=== PATIENT | male | born 1990 | race Caucasian/White ===

== ENCOUNTER 2021-12-26 12:31 | Emergency (ER) | payer MEDICARE, MEDICAID, SELFPAY ==
--- NOTE | ~2021-12-26 | US_ITS ---
EXAMINATION: US venous doppler UE RT DATE: 12/26/2021 13:39 INDICATION: Right upper limb swelling several days post PICC line removal. TECHNIQUE: Grayscale images without and with compression and Doppler images of the right upper extrem ity veins were obtained. COMPARISON: None. FINDINGS: There is nonocclusive noncompressible thrombus in the peripheral right subclavian vein extending into the right axillary vein with additional occlusive appearing thrombus further distally in the right b asilic vein. The right internal jugular vein, brachial vein, cephalic vein, radial vein, and ulnar ve in are patent. IMPRESSION: 1. Thrombosis in the right basilic and axillary veins extending into the peripheral right subclavian vein. Reviewed, dictated and finalized at location A. IMPRESSION: 1. Thrombosis in the right basilic and axillary veins extending into the periph eral right subclavian vein.
[2021-12-26 12:40] VITALS: BP 127/71; PULSE 100; RESP 14; TEMP 36.6; O2SAT 95
--- NOTE | 2021-12-26 13:03 | ED.EXTPRO ---
HPI - Extremity Problem General Chief complaint: Skin/Abscess/Foreign Body Stated complaint: ARM IS SWOLLEN Time Seen by Provider: 12/26/21 13:00 Source: patient and RN notes reviewed Mode of arrival: ambulatory Limitations: no limitations History of Present Illness HPI Narrative: Patient had been getting antibiotics for his history of cystic fibrosisthrough PICC line. He went to [facility] yesterday and had the PICC line removed after completing his therapy. he said the swelling began last evening and continued into this morning. He denies any significant pain. MD Complaint: extremity swelling Onset (ago): day(s) (1) Pain Consistency: constant Location: right and upper extremity Quality: aching, dull and constant Radiation: none Relieving factors: nothing Exacerbating factors: nothing Associated symptoms: denies other symptoms Context: recent surgery/procedure Related Data Allergies Allergy/AdvReac Type Severity Reaction Status Date / Time No Known Allergies Allergy Verified 12/26/21 13:00 Review of Systems Review of Systems: All systems reviewed & are unremarkable except as noted in HPI and below PMFSH Past Medical History Medical History (Updated 12/26/21 @ 13:59 by Roly Jacques MD) Cystic fibrosis Surgical History Surgical History (Updated 12/26/21 @ 13:58 by Roly Jacques MD) No pertinent past surgical history Social History Social History (Updated 12/26/21 @ 13:58 by Roly Jacques MD) Smoking status: Never smoker Exam Const: General: healthy appearing, no acute distress and alert Nutritional Appearance: well nourished and thin Orientation/consciousness: patient oriented x3 HENMT: Head: normal to inspection Ears: external ears normal Eyes: Conjunctivae: conjunctivae normal Pupils: Equal, round and reactive pupils present EOM: EOMs intact bilaterally Neck: Neck: normal visual inspection Chest: Chest palpation & inspection: normal inspection of the chest Resp: Effort & Inspection: normal respiratory effort Auscultation: clear to auscultation bilaterally Cardio: Rate: regular rate Rhythm: regular rhythm GI: GI Palp: Yes Soft to palpation and No Tenderness to palpation present (GI) Auscultation: normal bowel sounds Back/Spine/Pelvis: Cervical Spine: cervical ROM normal Thoracic/Lumbar Spine: thoraco-lumbar ROM normal Skin: General skin exam: normal color Rashes: no rashes Neuro: General: patient oriented x3, moves all extremities, no meningeal signs, no focal motor deficits and CN's II-XI intact bilaterally Speech: normal speech Gait exam (Neuro): Normal gait present Extrem: Right upper extremity: full ROM, cyanosis, edema and shoulder/upper arm tenderness ( Over the axillary vein medially) and warmth Psych: Appearance: grossly normal and well kempt Mental Status: mental status grossly normal Affect: normal affect Attitude: cooperative Thought content: Yes Normal thought content present Course Vital Signs Vital signs: Vital Signs Temperature 36.6 C 12/26/21 12:40 Pulse Rate 100 12/26/21 12:40 Respiratory Rate 14 12/26/21 12:40 Blood Pressure 127/71 12/26/21 12:40 Pulse Oximetry 95 12/26/21 12:40 Temperature 36.6 C 12/26/21 12:40 Pulse Rate 72 12/26/21 14:05 Respiratory Rate 14 12/26/21 14:05 Blood Pressure 127/71 12/26/21 12:40 Pulse Oximetry 99 12/26/21 14:05 MDM - Extremity (Nontraumatic) Lab Data Result diagrams: 12/26/21 13:40 12/26/21 13:40 Labs: Lab Results 12/26/21 12/26/21 12/26/21 Range/Units 13:40 13:40 13:40 WBC 9.9 (4.8-10.8) K/mm3 RBC 4.31 L (4.70-6.10) M/mm3 Hgb 13.1 L (14.0-18.0) g/dL Hct 39.7 L (40.0-54.0) % MCV 92.1 (78.0-102.0) fL MCH 30.4 (27.0-31.0) pg MCHC 33.0 (32.0-36.0) g/dL RDW 12.8 (11.6-14.4) % Plt Count 199 (150-420) K/mm3 MPV 10.4 (8.7-11.0) fl Immature Gran % (Auto) 0.6 H (0.0-0.0) % Julia
--- NOTE | 2021-12-26 13:23 | PC.NURSE ---
PT TO ULTRASOUND AT THIS TIME.
[2021-12-26 13:45] LABS: Basophils Absolute Auto 0.13 K/mm3 (0.00-0.10); Basophils Percent Auto 1.3 % (0.0-1.0); Eosinophils Percent Auto 9.1 % (1.0-6.0); Hematocrit 39.7 % (40.0-54.0); Hemoglobin 13.1 g/dL (14.0-18.0); Immature Granulocyte Absolute 0.06 K/mm3 (0.00-0.00); Immature Granulocyte Percent A 0.6 % (0.0-0.0); Lymphocytes Absolute Auto 2.89 K/mm3 (1.10-4.50); Lymphocytes Percent Auto 29.1 % (18.0-42.0); Mean Corpuscular Hemoglobin 30.4 pg (27.0-31.0); Mean Corpuscular Volume 92.1 fL (78.0-102.0); Mean Platelet Volume 10.4 fl (8.7-11.0); Monocytes Absolute Auto 0.49 K/mm3 (0.10-0.90); Monocytes Percent Auto 4.9 % (2.0-11.0); Neutrophils Absolute Auto 5.5 K/mm3 (1.7-7.2); Platelet Count Result 199 K/mm3 (150-420); Red Blood Count 4.31 M/mm3 (4.70-6.10); Red Cell Distribution Width 12.8 % (11.6-14.4); White Blood Count 9.9 K/mm3 (4.8-10.8)
[2021-12-26 13:58] LABS: D Dimer 0.32 mg/L (0.19-0.50)
[2021-12-26 14:04] LABS: Alanine Aminotransferase 34 U/L (16-63); Albumin Level 3.6 g/dL (3.4-5.0); Alkaline Phosphatase 90 U/L (46-116); Anion Gap 3 mmol/L (8-16); Aspartate Amino Transferase 27 U/L (15-37); Bilirubin,Total 0.2 mg/dL (0.00-1.00); Blood Urea Nitrogen 14 mg/dL (7-18); Calcium 9.9 mg/dL (8.5-10.1); Carbon Dioxide 34 mmol/L (21-32); Chloride 102 mmol/L (98-108); Estimated CRCL calculation 83 ml/min; Estimated Glomerular Filt Rate > 60; Glucose 77 mg/dL (70-99); Osmolality Calculated 287 mOsm/kg (285-295); Potassium 4.3 mmol/L (3.5-5.1); Sodium 139 mmol/L (136-145); Total Protein 7.8 g/dL (6.4-8.2)
[2021-12-26 14:05] VITALS: PULSE 72; RESP 14; O2SAT 99
--- NOTE | 2021-12-26 14:40 | PC.NURSE ---
pt's pharmacy does not have his script in stock. ara called in to [facility] in [place]. pt instructed to go there to fill script.
== END 2021-12-26 14:05 | disposition home or self-care (01) ==
PROVIDERS: Emergency Provider Emergency Medicine; PCP Family Medicine
DX: I82.621 Acute embolism and thrombosis of deep veins of right upper extremity (principal); E84.9 Cystic fibrosis, unspecified
CPT/HCPCS: 36415; 80053; 85025; 85380; 93971; 99284